=== PATIENT | female | born 1935 | race Caucasian/White ===

== ENCOUNTER → 2022-11-20 | Outpatient (CLI) | payer MEDICARE, OTHER | LOC: CARD 07:36 → EDBD 08:30 | PROVIDERS: ATTEND Internal Medicine Cardiovascular Disease | DX: I51.7 Cardiomegaly (principal); I34.81 Nonrheumatic mitral (valve) annulus calcification; Z95.2 Presence of prosthetic heart valve | CPT/HCPCS: 93306 ==

== ENCOUNTER 2022-11-22 09:29 | Emergency (ER) | payer MEDICARE ==
[~2022-11-22] VITALS: Ht 165 cm; Wt 95.0 kg
--- NOTE | 2022-11-22 10:00 | ED EENT ---
History of Present Illness General Chief Complaint: Nasal Problems Stated Complaint: NOSEBLEEDS Nursing Triage Note: PT AMB TO RM 7 PT CO NOSEBLEED X3 TODAY. PT DENIES PAIN. NO NOSEBLEEDING AT THIS X. STATES CAN FEEL IT RUNNING DOWN THE BACK OF THROAT History of Present Illness Date Seen by Provider: Nov 22, 2022 Time Seen by Provider: 09:59 Initial Comments Patient is an 87-year-old female with a history of hypertension and valve replacement who presents to the emergency department with a chief complaint of nosebleed. She states she woke up at 3 AM was able to get it under control it recurred again at 8 and then just prior to arrival. She states the third time was heavier than any other time. She states she can feel blood running down the back of her throat no active anterior bleeding at this time visible large clot on the left smaller on the right. She has had sinus surgeries in the past. Tells me she has a deviated septum. She has had cauterization in the past. She is not on blood thinners. She does not feel lightheaded or dizzy. Her blood pressure is quite high 200/100. She states she did take her routine medications this morning. No headache. No recent illnesses. No cough or congestion. She is not nauseous. Timing/Duration: abrupt Severity: moderate Location: nose Prearrival Treatment: squeezing nostrils, nasal packing (With tissue) Associated Symptoms: denies symptoms Allergies and Home Medications Allergies Coded Allergies: No Known Drug Allergies (Unverified , 11/22/22) Patient Home Medication List Home Medication List Reviewed: Yes Review of Systems Review of Systems Constitutional: see HPI Eyes: No Symptoms Reported Ears: No Symptoms Reported Nose: clots, epistaxis Mouth: no symptoms reported Throat: other (Blood in throat) Respiratory: no symptoms reported Cardiovascular: no symptoms reported Gastrointestinal: no symptoms reported All Other Systems Reviewed Negative Unless Noted: Yes Past Wvqubwl-Qmwtqf-Xpjjln Hx Patient Social History Tobacco Use?: No Substance use?: No Alcohol Use?: No Pt feels they are or have been: No Immunizations Up To Date Influenza Vaccine Up-to-Date: Yes; Up-to-Date First/Initial COVID19 Vaccinat: YES Second COVID19 Vaccination Fabian: YES Third COVID19 Vaccination Date: YES COVID19 Vaccine Financial Secretary: KALYANI Past Medical History Surgery/Hospitalization HX: SINUS SURGIES, AORTIC VALVE, BILAT TOTAL KNEE, PACEMAKER, HYST. HTN, BARIATRIC SURG Physical Exam Vital Signs Vital Signs - First Documented 11/22/22 11/22/22 09:35 11:42 Temp 36.3 Pulse 83 Resp 16 B/P (MAP) 204/104 (137) Pulse Ox 98 O2 Delivery Room Air Height, Weight, BMI Height: '" Weight: lbs. oz. kg; 34.00 BMI Method: General Appearance: WD/WN, no apparent distress Eyes: bilateral eye normal inspection, bilateral eye PERRL, bilateral eye EOMI Ears: bilateral ear TM dull (Dusky TMs bilaterally) Nose: other (Large clot deep in the left nare, no active bleeding. Smaller clot right nare.) Mouth/Throat: other (No significant posterior pharyngeal blood is noted, appears adequately hydrated) Neck: full range of motion, supple Cardiovascular: regular rate, rhythm, other (Hypertensive 200/100) Respiratory: no respiratory distress Neurologic/Psychiatric: alert, normal mood/affect, oriented x 3 Skin: normal color, warm/dry Progress/Results/Core Measures Results/Orders Lab Results Laboratory Tests Test 11/22/22 10:34 Range/Units White Blood Count 8.1 4.3-11.0 10^3/uL Red Blood Count 3.80 3.80-5.11 10^6/uL Hemoglobin 10.7 L 11.5-16.0 g/dL Hematocrit 33 L 35-52 % Mean Corpuscular Volume 87 80-99 fL Mean Corpuscular Hemoglobin 28 25-34 pg Mean Corpuscular Hemoglobin Concent 32 32-36 g/dL Red Cell Distribution Width 14.4 10.0-14.5 % Platelet Count 323 130-400 10^3/uL Mean Platelet Volume 9.5 9.0-12.2 fL Immature Granulocyte % (Auto) 0 % Neutrophils (%) (Auto) 60 42-75 % Lymphocytes (%) (Auto) 30 12-44 % Monocytes (%) (Auto) 7 0-12 % Eosinophils (%) (Auto) 2 0-10 % Basophils (%) (Auto) 1 0-10 % Neutrophils # (Auto) 4.9 1.8-7.8 10^3/uL Lymphocytes # (Auto) 2.4 1.0-4.0 10^3/uL Monocytes # (Auto) 0.6 0.0-1.0 10^3/uL Eosinophils # (Auto) 0.1 0.0-0.3 10^3/uL Basophils # (Auto) 0.1 0.0-0.1 10^3/uL Immature Granulocyte # (Auto) 0.0 0.0-0.1 10^3/uL Prothrombin Time 13.1 12.2-14.7 SEC INR Comment 0.9 0.8-1.4 Activated Partial Thromboplast Time 31 24-35 SEC Sodium Level 137 135-145 MMOL/L Potassium Level 3.6 3.6-5.0 MMOL/L Chloride Level 101 98-107 MMOL/L Carbon Dioxide Level 28 21-32 MMOL/L Anion Gap 8 5-14 MMOL/L Blood Urea Nitrogen 12 7-18 MG/DL Creatinine 0.72 0.60-1.30 MG/DL Estimat Glomerular Filtration Rate 81 BUN/Creatinine Ratio 17 Glucose Level 100 70-105 MG/DL Calcium Level 8.9 8.5-10.1 MG/DL Corrected Calcium 9.4 8.5-10.1 MG/DL Total Bilirubin 0.7 0.1-1.0 MG/DL Aspartate Amino Transf (AST/SGOT) 28 5-34 U/L Alanine Aminotransferase (ALT/SGPT) 24 0-55 U/L Alkaline Phosphatase 126 40-136 U/L Total Protein 6.1 L 6.4-8.2 GM/DL Albumin 3.4 3.2-4.5 GM/DL My Orders Orders - SANDIE BOBBY MD Ed Iv/Invasive Line Start (11/22/22 10:14) Cbc With Automated Diff (11/22/22 10:14) Comprehensive Metabolic Panel (11/22/22 10:14) Protime With Inr (11/22/22 10:14) Partial Thromboplastin Time (11/22/22 10:14) Vital Signs/I&O Blood Pressure Mean: 137 Progress Progress Note : Time: 11:32 Progress Note Patient seen and evaluated by me. Eval today includes physical exam and basic labs, CBC, CH12 and coags. Physical exam pertinent for WDWN 88yo female, NAD, a ppears very healthy with dired blood in the left nare. Recently moved from [place] and still in the process of establishing care. Heart is regular, lungs are clear, abdomen benign. No focal neuro deficits/concerns. Her BP is quite elevated but she is without s/sx of end organ damage. Ddx trauamtic vs spontaneous epistaxsis. Hypertensive urgency. Labs reviewed. Patient is mildly anemic - HGB of 10, otherwise coags and CH12 WNL. Patient had spontaneous cessation of nose bleed. No interventions were required. SHe remained pleasant, without distress. WE discussed management of nosebleeds at home. She is given contact info for our local ENT as she has had previous sinus surgery/intervention and has a deviated septum as a result. Her BP is still somewhat elevated at discharge and she remains asymptommatic. No direct interventions on her BP. She states on D/c from the ER she will contact her doctor. REturn precautions provided. All questions were sought and answered. Departure Impression Primary Impression: Epistaxis Additional Impression: Hypertension Disposition: 01 HOME, SELF-CARE Condition: Improved Departure-Patient Inst. Decision time for Depature: 11:33 Referrals: JIHAN ERNANDEZ MD (PCP) Primary Care Physician LINA VELASQUEZ MD, MINDI DO Patient Instructions: Nosebleeds (DC) Add. Discharge Instructions: If you become concerned about a recurrence of your nosebleed, hold direct pressure for at least 5 to 7 minutes. The cool compress on the back of your neck may also help. If it does not stop after 5 to 7 minutes please come back to the emergency room and let us take another look at you. I have provided Dr. Velasquez's contact information he is our local ear nose and throat doctor. You can call his office for a follow-up appointment. Please try not to blow your nose for the next 24 hours. Return to the emergency department for any new, concerning or emergent complaints. Copy Copies To 1: ALFONSO FARNSWORTH DO Copies To 2: LINA VELASQUEZ MD, KATHRYN M MD Nov 22, 2022 10:00
[2022-11-22 10:41] LABS: BASOPHILS # (AUTO) 0.1 10^3/uL (0.0-0.1); BASOPHILS % (AUTO) 1 % (0-10); EOSINOPHILS # (AUTO) 0.1 10^3/uL (0.0-0.3); EOSINOPHILS % (AUTO) 2 % (0-10); HEMATOCRIT 33 % (35-52); HEMOGLOBIN 10.7 g/dL (11.5-16.0); LYMPHOCYTES # (AUTO) 2.4 10^3/uL (1.0-4.0); LYMPHOCYTES % (AUTO) 30 % (12-44); MEAN CORPUSCULAR HEMOGLOBIN 28 pg (25-34); MEAN CORPUSCULAR HGB CONC 32 g/dL (32-36); MEAN CORPUSCULAR VOLUME 87 fL (80-99); MEAN PLATELET VOLUME 9.5 fL (9.0-12.2); MONOCYTES # (AUTO) 0.6 10^3/uL (0.0-1.0); MONOCYTES % (AUTO) 7 % (0-12); NEUTROPHILS # (AUTO) 4.9 10^3/uL (1.8-7.8); NEUTROPHILS % (AUTO) 60 % (42-75); PLATELET COUNT 323 10^3/uL (130-400); WHITE BLOOD COUNT 8.1 10^3/uL (4.3-11.0)
[2022-11-22 10:57] LABS: ALBUMIN 3.4 GM/DL (3.2-4.5)
[2022-11-22 10:58] LABS: INR 0.9 (0.8-1.4); POTASSIUM 3.6 MMOL/L (3.6-5.0); PROTHROMBIN TIME PATIENT 13.1 SEC (12.2-14.7)
[2022-11-22 10:59] LABS: CALCIUM 8.9 MG/DL (8.5-10.1)
[2022-11-22 11:00] LABS: TOTAL PROTEIN 6.1 GM/DL (6.4-8.2)
[2022-11-22 11:02] LABS: BILIRUBIN,TOTAL 0.7 MG/DL (0.1-1.0)
[2022-11-22 11:03] LABS: CREATININE SERUM 0.72 MG/DL (0.60-1.30)
[2022-11-22 11:42] VITALS: BP 212/89
== END 2022-11-22 11:44 | disposition home or self-care (01) ==
LOC: EDUNIT# 09:29 → ER 09:31
DX: R04.0 Epistaxis (principal); I10 Essential (primary) hypertension; D64.9 Anemia, unspecified; Z95.4 Presence of other heart-valve replacement; Z95.0 Presence of cardiac pacemaker
CPT/HCPCS: 36415; 80053; 85025; 85610; 85730

== ENCOUNTER → 2023-02-12 | Outpatient (CLI) | payer MEDICARE ==
[~2023-02-12] VITALS: Ht 165 cm; Wt 96.0 kg
[~2023-02-12] MED LIST: CATHETER FLUSH 10 ML SYR IVP PRN; REGADENOSON 0.4 MG/5 ML SYR (LEXISCAN) IV ONE
[2023-02-12 09:10] VITALS: BP 209/90
[2023-02-12 09:21] VITALS: BP 188/99
--- NOTE | 2023-02-12 13:07 | Cardiology Stress Test Report ---
Stress Test Report Date of Procedure/Referring: Date of Procedure: Feb 12, 2023 PCP Rafia Sogn DO Admitting Physician Admitting Physician: Attending Physician: Cheyanne Espino MD Baseline Heart Rate: 78 Baseline Blood Pressure: Blood Pressure Systolic: 188 Blood Pressure Diastolic: 99 Baseline Vitals Vital Signs Date Time Temp Pulse Resp B/P (MAP) Pulse Ox O2 Delivery O2 Flow Rate FiO2 02/12/23 09:10 84 209/90 (129) 02/12/23 09:21 17 99 Room Air Baseline EKG: Baseline EKG: RBBB Summary After explaining the procedure to the patient, she signed a consent and then brought to the stress nuclear laboratory. Patient received 0.4 mg Lexiscan for stress test, ECG, heart rate and blood pressure were monitored continuously. Resting and stress dose of radio tracer were injected, imaging was acquired and reviewed in short axis, horizontal long axis and vertical long axis views. TID: 1.17 SSS: 3 SDS: 2 EF: 53 Patient tolerated Lexiscan well Baseline right bundle branch block persisted during test Breast attenuation with no significant ischemia or infarction on SPECT images Normal left ventricular size, ejection fraction 53% Copy Copies To 1: RAFIA SONG BASHAR J MD Feb 12, 2023 13:07
== END ==
LOC: CARD 07:36
PROVIDERS: ATTEND Internal Medicine Cardiovascular Disease
DX: R07.9 Chest pain, unspecified (principal)
CPT/HCPCS: 78452; 93017; A9502

== ENCOUNTER → 2023-02-27 | Outpatient (CLI) | payer MEDICARE ==
--- NOTE | 2023-02-27 16:57 | Diagnostic Imaging Report ---
INDICATION: Low back pain. EXAM: AP, lateral and oblique views of lumbar spine are obtained FINDINGS: The patient has a grade 1 spondylolisthesis at L3-L4 and L4-L5. There is advanced degenerative disc changes at L3-L4 with vacuum disc phenomena and sclerosis of the vertebral endplates. There are hypertrophic changes of the facets at L3-L4 and L4-L5. There are no compression fractures. IMPRESSION: Slight spondylolisthesis at L3-L4 and L4-L5 with advanced degenerative disc changes at L3-L4. No acute abnormality is seen. Dictated by: Dictated on workstation # [id number]
== END ==
LOC: RAD 10:40
PROVIDERS: ATTEND Nurse Practitioner
DX: M51.16 Intervertebral disc disorders with radiculopathy, lumbar region (principal); M43.16 Spondylolisthesis, lumbar region; M47.26 Other spondylosis with radiculopathy, lumbar region
CPT/HCPCS: 72110

== ENCOUNTER → 2023-04-17 | Outpatient (CLI) | payer MEDICARE ==
--- NOTE | 2023-04-17 09:52 | Diagnostic Imaging Report ---
Indication: Pre-MRI screening. Time of Exam: 9:42 AM A dual-lead left-subclavian cardiac pacemaker is in place with lead tips in the region of the right atrium and right ventricle. No abandoned leads are identified. The heart size normal. Lungs are clear. There appear to be mitral annular calcifications present. There is no effusion or pneumothorax. IMPRESSION: No acute feature detected. There is no evidence of abandoned leads. Dictated by: Dictated on workstation # [id number]
--- NOTE | 2023-04-17 13:19 | Diagnostic Imaging Report ---
EXAMINATION: MRI lumbar spine without contrast. TECHNIQUE: Multiplanar, multisequence MRI of the lumbar spine was performed without contrast. HISTORY: Back pain. COMPARISON: None available. FINDINGS: There is grade 1 anterolisthesis of L3 on L4. There are mild Modic type I degenerative endplate changes at L3-L4. There are no compression fractures. The conus medullaris terminates at the level of L1. The distal spinal cord signal intensity is normal. Multilevel disc desiccation with disc height loss, greatest at L3-L4. Likely posterior annular disc tear at L5-S1. Limited views of the abdomen and pelvis show no soft tissue abnormality. The aorta is normal. L1-L2: Small symmetric disc bulge. No central canal stenosis. Mild facet hypertrophy. Mild bilateral neural foraminal stenosis. L2-L3: Small symmetric disc bulge, ligamentum flavum, and facet hypertrophy. Pkujmzei-yf-lprqya central canal stenosis. Moderate bilateral neural foraminal stenosis. L3-L4: Moderate symmetric disc bulge, ligamentum flavum and facet hypertrophy. Severe central canal stenosis. Moderate left and severe right neural foraminal stenosis. L4-L5: Small symmetric disc bulge. Ligamentum flavum and facet hypertrophy. Moderate central canal stenosis. Mild bilateral neural foraminal stenosis. L5-S1: No central canal or neural foraminal stenosis. IMPRESSION: 1. Multilevel degenerative changes of the spine with up to severe central canal stenosis at L3-L4. 2. Severe foraminal stenosis, right, L3-L4. Dictated by: Dictated on workstation # [id number]
== END ==
LOC: RAD 10:15
PROVIDERS: ATTEND Nurse Practitioner
DX: M47.26 Other spondylosis with radiculopathy, lumbar region (principal); M48.061 Spinal stenosis, lumbar region without neurogenic claudication; M51.16 Intervertebral disc disorders with radiculopathy, lumbar region; M43.16 Spondylolisthesis, lumbar region
CPT/HCPCS: 71045; 72148